=== PATIENT | female | born 1985 | race Caucasian/White ===

== ENCOUNTER 2018-08-21 10:21 | Inpatient (IN) | payer BC, OTHER ==
[2018-08-21] MEDS ORDERED: Lactated Ringer's 1,000 ML IV SCH (10:45)
[2018-08-21 11:05] LABS: BASO % 0.1 % (0.0-2.0); EOS % 0.1 % (0.0-4.0); LYMPH % 10.5 % (20.0-40.0); MEAN CELL VOLUME 88.1 fL (81.0-99.0); MEAN CORPUSCULAR HEMOGLOBIN 30.5 pg (27.0-31.0); MEAN CORPUSCULAR HGB CONC 34.7 g/dL (33.0-37.0); MEAN PLATELET VOLUME 10.1 fL (7.2-11.7); MONO # 0.4 K/uL (0.0-0.8); MONO % 4.7 % (0.0-10.0); NEUT # 8.1 K/uL (1.8-7.0); NEUT % 84.6 % (50.0-75.0); NRBC % 0.1 % (0.0-2.0); RBC 4.27 Mil/uL (3.80-5.20); WHITE BLOOD COUNT 9.5 K/uL (4.8-10.8)
--- NOTE | 2018-08-21 11:11 | OBHP ---
Datetime: 08/21/2018 10:35 IP Adm Impression: Term, intrauterine ; Active labor IP Admit Plan: Admit to unit Admit Comment, IP Provider: 32yo at 38.6wks BELLE: 08/29/18 sent from private MD office for tila goodman. Pt reports contractions (+) LOF at 10:10am clear. (+) FM. Ob: x 2, largest baby 7lb 14oz; SAB x 1 HANDICAPPER HARNESS RACING: menarche 16yo regular denies h/o fibroids/cysts/STDS PMHX: denies PSHX: denies ALL: NKDA Meds: PNV SHX: denies FHX: denies SVE: 6.5/70/-2 grossly ruptures EFM: 130s, mod variability (+) accels (+) variable/late decel TOCO: q 2-5min A/P: 32yo at 38+6- Admit to L_D for labor/ROM 1) Admit to L_D 2) CATII tracing- pt on l lateral side, IVF bolus o2 via facemask - IFM placed 3) Dr. Meyers Notified- en route to hospital [facility]. Pelvic Type - PN: Adequate Extremities - PN: Normal Abdomen - PN: Normal Back - PN: Normal Breast - PN: Normal Lungs - PN: Normal Heart - PN: Normal Thyroid - PN: Normal Neurologic - PN: Normal HEENT - PN: Normal General - PN: Normal FHR - Baseline A Provider: 130 Amniotic Fluid Color, Provider: Clear Membranes, Provider: Ruptured Comments, ACOG Physical Exam: SVE: 6.5/70/-2 grossly ruptured Pool Provider: Positive EGA AdmitDate IP: 38.6 IP Chief Complaint: Uterine contractions NICHD Variability Prov Fetus A: Moderate 6-25bpm NICHD Accel Fetus A IP Provider: present FHR Category Provider Fetus A: Category II NICHD Decel Fetus A IP Provider: Variable Dilatation, Provider: 7 Effacement, Provider: 70 Station, Provider: -2 Genitourinary Exam: Normal DTRs - PN: Normal
[2018-08-21 11:22] LABS: ALB/GLOB RATIO 1.1 (1.0-2.1); BLOOD UREA NITROGEN 8 mg/dL (7-17); CALCIUM 9.3 mg/dl (8.6-10.4); GFR NON-AFRICAN AMERICAN > 60
[2018-08-21 11:23] LABS: ALT/SGPT 21 U/L (9-52); AST/SGOT 36 U/L (14-36)
[2018-08-21] MEDS ORDERED: cefOXitin IV 2 gm in Dextrose 2 GM/50 ML BAG IVPB ONE (11:28)
[2018-08-21] MEDS ORDERED: Sodium Citrate/Citric Acid 15 ml Sol PO ONE (11:28)
[2018-08-21] MEDS ORDERED: Propofol 10 mg/ml Inj (20 ML) ONE (11:46)
[2018-08-21] MEDS ORDERED: Lidocaine 2% MPF (5 ml) Inj ONE (12:01)
[2018-08-21] MEDS ORDERED: Oxycodone/Acetaminophen 5/325 mg Tab PO PRN ×2 (12:04)
--- NOTE | 2018-08-21 12:19 | OBADHP ---
Datetime: 08/21/2018 11:34 NICHD Variability Prov Fetus A: Moderate 6-25bpm FHR Category Provider Fetus A: Category II NICHD Decel Fetus A IP Provider: Late; Variable Dilatation, Provider: 7 Effacement, Provider: 80 Station, Provider: -2 Datetime: 08/21/2018 10:35 Admit Comment, IP Provider: 32yo at 38.6wks BELLE: 08/29/18 sent from private MD office for la bor. Pt reports contractions (+) LOF at 10:10am clear. (+) FM. Ob: x 2, largest baby 7lb 14oz; SAB x 1 DATA MANAGEMENT: menarche 16yo regular denies h/o fibroids/cysts/STDS PMHX: denies PSHX: denies ALL: NKDA Meds: PNV SHX: denies FHX: denies SVE: 6.5/70/-2 grossly ruptures EFM: 130s, mod variability (+) accels (+) variable/late decel TOCO: q 2-5min A/P: 32yo at 38+6- Admit to L_D for labor/ROM 1) Admit to L_D 2) CATII tracing- pt on l lateral side, IVF bolus o2 via facemask - IFM placed 3) Dr. Meyers Notified- en route to hospital agree with above admit for labor Juanpablo Brown D.O Pelvic Type - PN: Adequate Extremities - PN: Normal Abdomen - PN: Normal Back - PN: Normal Breast - PN: Normal Lungs - PN: Normal Heart - PN: Normal Thyroid - PN: Normal Neurologic - PN: Normal HEENT - PN: Normal General - PN: Normal FHR - Baseline A Provider: 130 Amniotic Fluid Color, Provider: Clear Membranes, Provider: Ruptured Comments, ACOG Physical Exam: SVE: 6.5/70/-2 grossly ruptured Pool Provider: Positive IP Chief Complaint: Uterine contractions NICHD Accel Fetus A IP Provider: present Genitourinary Exam: Normal DTRs - PN: Normal EGA AdmitDate IP: 38.6 IP Adm Impression: Term, intrauterine ; Active labor IP Admit Plan: Admit to unit
--- NOTE | 2018-08-21 12:24 | OBDS ---
DELIVERY PERSONNEL Delivery Doctor: Lizbet Meyers MD Scrub Nurse: Opal Solomon Research And Development Tester: Xochilt Wilkerson RN Anesthesiologist: clarence Ferrer Resident: dr. eva sharp MATERNAL INFORMATION Delivery Anesthesia: None Medications in Delivery: pitocin 20 units Estimated Blood Loss (ml): 500 Placenta Cultured: No Maternal Complications: None Other Maternal Complications: none RN Comments: uneventful delivery with living baby boy at 11:[address] am[address]ifer [address] and dr. maggie jeff prior to delivery and at crib side during delivery. Provider Comments: pt was fully dilated and pushing. atrumatic, spontaneous dleivery of head, no nuc [place] cord noted. Atruatmic, spontaneou delivery of anterior followed by posterior shoulder followed by delivery of the body. both oral and nasal passages of wilda baby were bulb suctioned. umbical cord was clamped adn cut. Baby given to sewer tapper. Cord blood and cord gases collected and sent x 2. Spont aneous delveyr of intact placenta with embmrane. fundus firm. Good hemostasis. Second degree perinea l lacleration noted adn repaired with 2-0 chromic with local anesthesia. Good hemoasis, no complicai otns. live male ifnat agpars 9,9 weight of 7lbs 15 ounces ebl 500ml LABOR SUMMARY EDC: 08/29/2018 00:00 No. Babies in Womb: 1 Attempted: No Labor Anesthesia: None LABOR INFORMATION Other Ripening Agents: n/a Oxytocin: N/A Group B Beta Strep: Negative Antibiotics # of Doses: 0 Antibiotics Time of Last Dose: n/a Steroids Given: None Reason Steroids Not Administered: Not Applicable MEMBRANES Membranes Rupture Method: Spontaneous Rupture of Membranes: 08/21/2018 10:25 Length of Rupture (hrs): 1.47 Amniotic Fluid Color: Clear Amniotic Fluid Amount: Moderate Amniotic Fluid Odor: Normal STAGES OF LABOR Stage 3 hrs: 0 Stage 3 min: 3 VAGINAL DELIVERY Episiotomy: None Laceration Extension: Second Degree Laceration Type: Perineal Laceration Repair: Yes Initial Vag Sponge Count: 10 Final Vag Sponge Count: 10 Initial Vag Sharps Count: 0 Final Vag Sharps Count: 3 Sponge Count Correct: Yes Sharps Count Correct: Yes BABY A INFORMATION Delivery Date/Time: 08/21/2018 11:53 Method of Delivery: Vaginal Born in Route : No : N/A Forceps: N/A Vacuum Extraction: N/A Shoulder Dystocia : No SHOULDER DYSTOCIA BABY A Delivery Date/Time: 08/21/2018 11:53 PRESENTATION/POSITION BABY A Presentation: Cephalic Cephalic Presentation: Vertex Vertex Position: Left Occipital Anterior Breech Presentation: N/A PLACENTA INFORMATION BABY A Placenta Delivery Time : 08/21/2018 11:56 Placenta Method of Delivery: Spontaneous Placenta Status: Delivered SCORES BABY A Heart Rate 1 min: >100 bpm Resp Effort 1 min: Good Cry Reflex Irritability 1 min: Cough or Sneeze or Pulls Away Muscle Tone 1 min: Active Motion Color 1 min: Body [place], Extremities Blue SCORE 1 MIN: 9 Heart Rate 5 min: >100 bpm Resp Effort 5 min: Good Cry Reflex Irritability 5 min: Cough or Sneeze or Pulls Away Muscle Tone 5 min: Active Motion Color 5 min: Body [place], Extremities Blue SCORE 5 MIN: 9 INFANT INFORMATION BABY A Gestational Age at Delivery: 38.6 Gestational Status: Term Outcome : Liveborn Condition : Stable Infant Sex: Male IDENTIFICATION/MEDS BABY A ID Band Number: [id number] ID Band Location: Left Leg; Left Arm Sensor Applied: Yes Sensor Number: [id number] Sensor Location : Cord Clamp Vitamin K Given : Aquamephyton 1 mg IM Erythromycin Given: Given Both Eyes WEIGHT/LENGTH BABY A Infant Birthweight (gms): 3590 Weight (lb): 7 Weight (oz): 15 Length Inches: 20.50 Length cms: 52.1 CORD INFORMATION BABY A No. Cord Vessels: 3 Nuchal Cord : N/A Nuchal Cord Other: 0 True Knot: 0 Cord Blood Taken: Yes Suction: None ASSESSMENT BABY A Infant Complications: None Physical Findings at Delivery: Within Normal Limits Respirations: Appears Normal [employer] Office Route Aide/ALS Called : Yes Infant Care By: dr. serrano and jennifer flores Transferred To: Remains with Mother
[2018-08-21] MEDS: Benzocaine/Menthol 20%-0.5% Topical Spray (60 ml) TOP SCH (17:21)
[2018-08-22] MEDS: Benzocaine/Menthol 20%-0.5% Topical Spray (60 ml) TOP SCH ×4 (00:01→17:21)
[2018-08-22 00:45] VITALS: RESP 20
[2018-08-22 08:28] LABS: BASO % 0.1 % (0.0-2.0); EOS # 0.1 K/uL (0.0-0.7); EOS % 1.6 % (0.0-4.0); LYMPH # 1.5 K/uL (1.0-4.3); LYMPH % 16.5 % (20.0-40.0); MEAN CELL VOLUME 88.5 fL (81.0-99.0); MEAN CORPUSCULAR HEMOGLOBIN 31.1 pg (27.0-31.0); MEAN CORPUSCULAR HGB CONC 35.1 g/dL (33.0-37.0); MEAN PLATELET VOLUME 10.1 fL (7.2-11.7); MONO # 0.6 K/uL (0.0-0.8); MONO % 6.8 % (0.0-10.0); RBC 3.5 Mil/uL (3.80-5.20); RED CELL DISTRIBUTION WIDTH 13.8 % (11.5-14.5); WHITE BLOOD COUNT 9.3 K/uL (4.8-10.8)
[2018-08-22 08:54] LABS: HEMOGLOBIN 10.9 g/dL (11.0-16.0)
[2018-08-22] MEDS: Multiple Vitamins Tab PO SCH (10:03)
--- NOTE | 2018-08-22 12:11 | OBPPN ---
Datetime: 08/22/2018 11:47 PP Pain Prov: Within normal limits PP Nausea Prov: Denies PP Breasts Prov: Not Done PP Heart Prov: Normal PP Lungs Prov: Normal PP Abdomen/Uterus Prov: Normal PP Lochia Prov: Normal PP Vulva/Perineum Prov: Normal PP CVA Tenderness Prov: Normal PP Extremities Prov: Normal PP C/S Incision Prov: Not Applicable PP Progress Prov: Abnormal PP Impression Prov: Normal progression; difficulties PP Plan Prov: Continue present management; consult PP Progress Note Prov: PPD # 1 S/P Pt seen and examined per Dr. Meyers's request VSS afebrile C/O of cramping and advised to request pain medications q _ hrs Encouraged to increse po water intake as well as put the baby to breast Q 2 hrs for 15-20 minutes on each breast consult ordered PP H_H 10.9/31.0 / Maternal Rh+ Advance care [facility] to discharge home in AM IP PP Procedures: None Vital Signs Provider PP: Reviewed; Within Normal Limits Vital Signs Provider Details PP: FH firm and non-tender and at umbilicus
[2018-08-22 16:06] VITALS: O2SAT 99
[2018-08-23 07:33] VITALS: BP 109/66; PULSE 79; TEMP 98.1
[2018-08-23] MEDS: Multiple Vitamins Tab PO SCH (10:11)
--- NOTE | 2018-08-23 11:40 | OBPPN ---
Datetime: 08/23/2018 11:38 PP Pain Prov: Within normal limits PP Nausea Prov: Denies PP Flatus Prov: Yes PP Breasts Prov: Normal PP Heart Prov: Normal PP Lungs Prov: Normal PP Abdomen/Uterus Prov: Normal PP Lochia Prov: Normal PP Vulva/Perineum Prov: Normal PP CVA Tenderness Prov: Normal PP Extremities Prov: Normal PP C/S Incision Prov: Not Applicable PP Progress Prov: Normal PP Impression Prov: Normal progression PP Plan Prov: Discharge Vital Signs Provider PP: Reviewed
--- NOTE | 2018-08-23 11:40 | OBDCSUM ---
Datetime: 08/23/2018 11:39 Discharged to, Provider: Home Follow up at, Provider: Dr esquivel Disch Instr Activity: Normal activity Disch Instr Diet: Regular Discharge Instructions, Provider: Routine instructions given Discharge Diagnosis, Provider: Term Delivered Discharge Time: 08/23/2018 11:39 Follow up in weeks, Provider: 6 weeks Disch Referrals: None Contraception discussed, Prov: Yes Disch Activity Restrictions: No sexual activity; Nothing in vagina - [place], tampons, douche Discharge Comment, Provider: precaitom given Contraception after Delivery: Not Planning to Use
== END 2018-08-23 15:49 | disposition home or self-care (01) | DRG 807 ==
LOC: C.EROB 10:21 → C.4D 10:39 → C.4M 14:10
PROVIDERS: ADMIT Obstetrics & Gynecology; ATTEND Obstetrics & Gynecology
PROC: 10E0XZZ Delivery of Products of Conception, External Approach (ICD-10-PCS; principal; 2018-08-21)
PROC: 0KQM0ZZ Repair Perineum Muscle, Open Approach (ICD-10-PCS; 2018-08-21)
DX: O76 Abnormality in fetal heart rate and rhythm complicating labor and delivery (principal); Z37.0 Single live birth; O70.1 Second degree perineal laceration during delivery; Z3A.38 38 weeks gestation of pregnancy

== ENCOUNTER 2018-10-16 05:51 | Day surgery (SDC) | payer BC, OTHER ==
[2018-10-01 14:15] VITALS: BMI 27.1
[2018-10-16] MEDS ORDERED: Midazolam 2 MG/2 ML VIAL ONE (07:44)
[2018-10-16] MEDS ORDERED: Propofol 10 mg/ml Inj (20 ML) ONE (07:44)
[2018-10-16] MEDS ORDERED: Rocuronium 10 mg/ml (5 ml) ONE (07:45)
[2018-10-16] MEDS ORDERED: Succinylcholine Chloride 20 mg/ml Syr (5 ml) IV ONE (07:45)
[2018-10-16] MEDS ORDERED: Neostigmine Methylsulfate 3mg/3ml Syringe IV ONE (07:45)
[2018-10-16] MEDS ORDERED: Lidocaine Hydrochloride 5 ML INJ ONE (07:45)
[2018-10-16] MEDS ORDERED: Bupivacaine 0.25% 20 ML INJ IJ ONE (08:53)
[2018-10-16] MEDS ORDERED: HYDROmorphone 0.5 mg/0.5 ml ISec IVP PRN (10:02)
[2018-10-16 10:39] VITALS: O2SAT 100
[2018-10-16 12:14] VITALS: BP 146/80; PULSE 88; RESP 18; TEMP 97
--- NOTE | 2018-10-16 20:55 | OP ---
PROCEDURE DATE: 10/16/2018 SURGEON: Lizbet Meyers MD GALVANIZER ZINC: Edward Reddy MD PREOPERATIVE DIAGNOSIS: Multiparity, desires permanent tubal sterilization. POSTOPERATIVE DIAGNOSIS: Multiparity, desires permanent tubal sterilization. ANESTHESIA: General LMA. OPERATIVE FINDINGS: Normal-appearing anteverted uterus, normal-appearing fallopian tubes and ovaries bilaterally. Dr. Edward Reddy was research assistant professor present for entire case, essentially in gaining laparoscopic entry, applying fallopian rings to bilateral fallopian tubes, removing all instruments, and closing all layers. PROCEDURES PERFORMED: Operative laparoscopy, laparoscopic bilateral tubal occlusion, sterilization with fallopian rings. ESTIMATED BLOOD LOSS: 5 mL. BLOOD PRODUCTS: None. COMPLICATIONS: None. SPECIMEN: None. DESCRIPTION OF PROCEDURE: The patient is a 33-year-old para 3 that desires permanent tubal sterilization, opted for retention of the tubes of fallopian and after being appropriately counseled, risks, benefits, alternative and indications were discussed with the patient. The patient was advised that this is a permanent procedure; however, if she desires procedure to be reversed would be referred to paper reeler. The patient was also appropriately counseled on an IUD Nexplanon and other forms of contraceptives; however, declined. The patient states that she does not desire tubal reversibility; however, does not want the fallopian tube removed despite being made aware of the added benefits of decreasing risk of ovarian cancer. The patient was taken to the operating room where she was given general anesthesia. Once it was found adequate, she was placed on the operating table in the dorsal supine position with legs supported using stirrups. The patient was prepped and draped in the usual sterile fashion. A time-out confirmed correct patient and correct procedure. Bimanual exam was performed with the above-mentioned findings. A Hyman catheter was then inserted into the urethra to drain the bladder. Bimanual exam was replaced. A Desai retractor was placed in the anterior and posterior fornix of the vagina. The cervix was adequately visualized. The uterus was then sounded to 8 cm, following this the cervix was sequentially dilated to allow for the HUMI uterine manipulator, which was insufflated with 8 mL of air. The Desai retractor was removed from the anterior lip of the cervix. There was good hemostasis noted. All instruments were removed. HUMI uterine manipulator was left in place. The patient was repositioned, the surgeon then re-gloved, and attention was then turned to the abdomen. A 0.25% Marcaine was given infraumbilically. An 8 mm skin incision was made, the skin was then tented up with towel clamps. The Veress needle was then inserted, which was confirmed by normal saline test. Normal opening pressures. The abdomen was then insufflated to 15 mmHg. Following this, the Veress needle was then removed and an 8 mm trocar then was inserted. The laparoscope was then inserted and there was good confirmation of placement. A 5-mm supraumbilical port was then inserted after the administration of local anesthetic and the patient was then placed in Trendelenburg position. The bowel was then retracted out of way. There was good peritoneal insertion in the abdomen and pelvis cavity. No liver. The uterus was then anteverted. Following this, the right fallopian tube was grasped approximately 2 cm from the cornual region. A portion of the fallopian tube of 2 to 3 cm was grasped using the fallopian tube ring applicator and the full thickness around the mesosalpinx and the fallopian tube was carefully applied as instructed by the miller supervisor. There was a knuckle noted with devascularization. The picture was then taken. The same procedure was performed on the contralateral tube. All instruments were removed. There was good hemostasis noted. The abdomen was then desufflated. The ports were then removed under direct visualization and there was good hemostasis noted. The skin was reapproximated closed with a 4-0 Monocryl in a running subcuticular fashion. The Hyman was removed in addition to the HUMI uterine manipulator. At the end of the procedure, all needle, sponge, and instrument counts were noted to be correct x2. The patient tolerated the procedure well and was transferred to the recovery room in stable condition. Lizbet Meyers MD
== END 2018-10-16 14:18 | disposition home or self-care (01) ==
LOC: C.SDS 05:51
PROVIDERS: ATTEND Obstetrics & Gynecology
DX: Z30.09 Encounter for other general counseling and advice on contraception (principal); Z30.2 Encounter for sterilization
CPT/HCPCS: 58670; J1885; J2250; J2704; J2710; J3010